=== PATIENT | female | born 1995 | race Two or more races ===

== ENCOUNTER 2018-04-18 14:58 | Emergency (ER) | payer SELFPAY ==
[~2018-04-18] VITALS: Ht 160 cm; Wt 81.6 kg
[2018-04-18 15:31] VITALS: BP 149/78
[2018-04-18 16:44] LABS: Albumin 3.7 g/dL (3.4-5.0); BUN/Creatinine Ratio 9.2; Calcium 8.9 mg/dL (8.5-10.1)
[2018-04-18 16:46] LABS: Bilirubin, Total 0.3 mg/dL (0.2-1.0); Total Protein 7.7 g/dL (6.4-8.2)
[2018-04-18 16:47] LABS: Basophils # (auto) 0 uL; Basophils % (auto) 0.2 % (0.0-2.0); Eosinophils # (auto) 0.2 uL; Eosinophils % (auto) 1.4 % (0.0-7.0); Hematocrit 38.7 % (36.0-46.0); Hemoglobin 12.8 g/dL (12.2-16.2); Lymphocytes # (auto) 2.7 uL; Mean Corpuscular Hemoglobin 28.7 pg (28.0-32.0); Mean Corpuscular Hgb Conc. 32.9 g/dL (32.0-36.0); Mean Corpuscular Volume 87.3 fL (80.0-100.0); Monocytes # (auto) 0.9 uL; Monocytes % (auto) 7.9 % (0.0-12.0); Neutrophils # (auto) 7.4 uL; Neutrophils % (auto) 66.5 % (37.0-80.0); Platelet Count (auto) 397 10^3/uL (140-450); Red Blood Cells 4.44 10^6/uL (4.0-5.20); Red Cell Distribution Width 13.4 % (11.8-14.3); White Blood Cell 11.1 10^3/uL (4.4-10.8)
[2018-04-18 19:46] LABS: Urine WBC None Seen /hpf (0 - 5)
[2018-04-18 20:06] LABS: Urine Amorphous Crystal MOD /hpf (None Seen); Urine Bacteria FEW /hpf (None Seen); Urine Blood Negative /uL (Negative); Urine Mucus FEW (None Seen); Urine Specific Gravity 1.034 (1.001-1.035)
== END 2018-04-18 21:22 | disposition left against medical advice (07) ==
LOC: ER 15:11
DX: R11.2 Nausea with vomiting, unspecified (principal); Z32.01 Encounter for pregnancy test, result positive; Z53.29 Procedure and treatment not carried out because of patient's decision for other reasons
CPT/HCPCS: 36415; 80053; 81001; 81025; 85025

== ENCOUNTER 2018-11-27 11:40 | Observation (INO) | payer MEDICAID ==
[2018-11-28] MEDS ORDERED: PRENCAP PO (13:35)
== END 2018-11-27 12:25 | disposition home or self-care (01) | DRG 566 ==
LOC: LDRP 11:40
PROVIDERS: ADMIT Obstetrics & Gynecology; ATTEND Obstetrics & Gynecology
DX: O48.0 Post-term pregnancy (principal); Z3A.40 40 weeks gestation of pregnancy
CPT/HCPCS: 59025; 81002; G0378

== ENCOUNTER 2018-11-28 12:55 | Observation (INO) | payer MEDICAID ==
[2018-11-28] MEDS ORDERED: PRENCAP PO (13:35)
== END 2018-11-28 14:05 | disposition home or self-care (01) | DRG 566 ==
LOC: LDRP 12:55
PROVIDERS: ADMIT Specialist; ATTEND Specialist
DX: O48.0 Post-term pregnancy (principal); Z3A.40 40 weeks gestation of pregnancy
CPT/HCPCS: 59025; 76818; 81002; G0378

== ENCOUNTER 2018-11-30 11:00 | Observation (INO) | payer MEDICAID ==
[~2018-11-30 11:00] MED LIST: PRENCAP PO
== END 2018-11-30 12:47 | disposition home or self-care (01) | DRG 566 ==
LOC: LDRP 11:00
PROVIDERS: ADMIT Obstetrics & Gynecology; ATTEND Obstetrics & Gynecology
DX: O48.0 Post-term pregnancy (principal); Z3A.40 40 weeks gestation of pregnancy
CPT/HCPCS: 59025; 76818; 81002; G0378

== ENCOUNTER 2018-12-02 20:39 | Observation (INO) | payer MEDICAID | END 2018-12-02 22:10 | disposition home or self-care (01) | DRG 566 | LOC: LDRP 20:39 | PROVIDERS: ADMIT Specialist; ATTEND Specialist | DX: O48.0 Post-term pregnancy (principal); O26.893 Other specified pregnancy related conditions, third trimester; R10.9 Unspecified abdominal pain; Z3A.40 40 weeks gestation of pregnancy | CPT/HCPCS: 76818; G0378 ==

== ENCOUNTER 2020-03-29 17:24 | Observation (INO) | payer MEDICAID ==
[~2020-03-29] VITALS: Ht 30.5 cm; Wt 0.5 kg
[2020-03-29] MEDS ORDERED: TERBUTALINE SULFATE 1 MG/ML 1ML VIAL SC ONE (18:37)
[2020-03-29] MEDS ORDERED: LACTATED RINGER'S 1,000 ML IV ONE (18:45)
[2020-03-29] MEDS: TERBUTALINE SULFATE 1 MG/ML 1ML VIAL SC SCH ×3 (19:02→19:21)
[2020-03-29] MEDS ORDERED: BETAMETHASONE ACET (6MG/ML) 5ML VIAL IM SCH (19:15)
[2020-03-29] MEDS ORDERED: NIFEdipine 10 MG CAP PO ONE (19:30)
[2020-03-29 19:46] LABS: Alcohol, Urine < 3.0 mg/dL (0-10); Amphetamine Screen, Urine NEGATIVE (NEGATIVE); Barbiturate Scree,Urine NEGATIVE (NEGATIVE); Benzodiazephine Screen, Urine NEGATIVE (NEGATIVE); Cannabinoid Screen, Urine POSITIVE (NEGATIVE); Cocaine Screen, Urine NEGATIVE (NEGATIVE); Phencyclidine Screen, Urine NEGATIVE (NEGATIVE)
[2020-03-29 19:54] LABS: Opiate Scree,Urine NEGATIVE (NEGATIVE)
[2020-03-29] MEDS ORDERED: NIF10C PO (20:22)
[2020-03-30] MEDS ORDERED: BETAMETHASONE ACET (6MG/ML) 5ML VIAL IM SCH (10:00)
== END 2020-03-29 21:16 | disposition home or self-care (01) ==
LOC: LDRP 17:24
PROVIDERS: ADMIT Obstetrics & Gynecology; ATTEND Obstetrics & Gynecology
DX: O26.893 Other specified pregnancy related conditions, third trimester (principal); R10.30 Lower abdominal pain, unspecified; O99.891 Other specified diseases and conditions complicating pregnancy; M25.552 Pain in left hip; M25.551 Pain in right hip; O21.2 Late vomiting of pregnancy; O34.63 Maternal care for abnormality of vagina, third trimester; N89.8 Other specified noninflammatory disorders of vagina; Z3A.35 35 weeks gestation of pregnancy; Z79.899 Other long term (current) drug therapy
CPT/HCPCS: 59025; 80307; 81002; 94760; 96360; 96361; 96372; G0378; J0702; J3105

== ENCOUNTER 2020-03-30 19:01 | Observation (INO) | payer MEDICAID ==
[~2020-03-30] VITALS: Ht 160 cm; Wt 103.0 kg
[~2020-03-30 19:01] MED LIST changes: +NIF10C PO
[2020-03-30] MEDS ORDERED: BETAMETHASONE ACET (6MG/ML) 5ML VIAL IM SCH (19:30)
== END 2020-03-30 19:52 | disposition home or self-care (01) ==
LOC: LDRP 19:01
PROVIDERS: ADMIT Obstetrics & Gynecology; ATTEND Obstetrics & Gynecology
DX: O21.2 Late vomiting of pregnancy (principal); O26.893 Other specified pregnancy related conditions, third trimester; N89.8 Other specified noninflammatory disorders of vagina; R10.11 Right upper quadrant pain; R10.12 Left upper quadrant pain; R10.30 Lower abdominal pain, unspecified; M25.551 Pain in right hip; M25.552 Pain in left hip; Z3A.35 35 weeks gestation of pregnancy
CPT/HCPCS: 59025; 81002; 96372; G0378; J0702

== ENCOUNTER 2020-05-10 11:50 | Observation (INO) | payer MEDICAID ==
[~2020-05-10] VITALS: Ht 162.6 cm; Wt 104.3 kg
== END 2020-05-10 15:23 | disposition home or self-care (01) ==
LOC: LDRP 11:50
PROVIDERS: ADMIT Obstetrics & Gynecology; ATTEND Obstetrics & Gynecology
DX: O48.0 Post-term pregnancy (principal); Z3A.41 41 weeks gestation of pregnancy
CPT/HCPCS: 59025; 76805; 76818; 81002; G0378

== ENCOUNTER 2020-05-12 10:45 | Observation (INO) | payer MEDICAID ==
[~2020-05-12] VITALS: Ht 160 cm; Wt 104.3 kg
[~2020-05-12 10:45] MED LIST changes: -NIF10C PO
== END 2020-05-12 12:25 | disposition home or self-care (01) ==
LOC: LDRP 10:45
PROVIDERS: ADMIT Specialist; ATTEND Specialist
DX: O48.0 Post-term pregnancy (principal); Z20.828 Contact with and (suspected) exposure to other viral communicable diseases; O41.03X0 Oligohydramnios, third trimester, not applicable or unspecified; Z3A.41 41 weeks gestation of pregnancy
CPT/HCPCS: 36415; 59025; 76818; 81002; 87426; G0378; U0003

== ENCOUNTER 2020-05-12 20:09 | Inpatient (IN) | payer MEDICAID ==
[~2020-05-12] VITALS: Ht 160 cm; Wt 104.3 kg
[2020-05-12] MEDS ORDERED: WITCH HAZEL-GLYCERIN PAD TOP PRN (20:30)
[2020-05-12] MEDS ORDERED: PHISODERM TOP SOLN 240ML BTL TOP PRN (20:30)
[2020-05-12] MEDS ORDERED: PENICILLIN G POT 5MIL/D5 50ML 50 ML IV ONE (20:30)
[2020-05-12] MEDS ORDERED: DERMOPLAST 60ML BOTTLE TOP PRN (20:30)
[2020-05-12 21:42] LABS: Basophils # (auto) 0 10 ^3/uL (0-0.2); Basophils % (auto) 0.3 % (0.0-2.0); Eosinophils # (auto) 0.1 10 ^3/uL (0-0.8); Eosinophils % (auto) 0.9 % (0.0-7.0); Hematocrit 31.6 % (36.0-46.0); Hemoglobin 10.9 g/dL (12.2-16.2); Lymphocytes # (auto) 1.6 10 ^3/uL (0.4-5.4); Lymphocytes % (auto) 25.8 % (10.0-50.0); Mean Corpuscular Hemoglobin 28.4 pg (28.0-32.0); Mean Corpuscular Hgb Conc. 34.5 g/dL (32.0-36.0); Mean Corpuscular Volume 82.3 fL (80.0-100.0); Monocytes # (auto) 0.4 10 ^3/uL (0-1.3); Neutrophils # (auto) 4.1 10 ^3/uL (1.6-8.6); Platelet Count (auto) 218 10^3/uL (140-450); Red Blood Cells 3.84 10^6/uL (4.0-5.20); Red Cell Distribution Width 14.2 % (11.8-14.3); White Blood Cell 6.3 10^3/uL (4.4-10.8)
[2020-05-12 21:55] LABS: Albumin 2.6 g/dL (3.4-5.0); Calcium 9.2 mg/dL (8.5-10.1); Potassium 3.6 mmol/L (3.5-5.1)
[2020-05-12 21:58] LABS: BUN/Creatinine Ratio 12.3; Bilirubin, Total 0.2 mg/dL (0.2-1.0); Total Protein 6.4 g/dL (6.4-8.2)
[2020-05-12 23:02] LABS: INR 0.93 (0.9-1.15); Partial Thromboplastin Time 24.4 sec (23.0-31.2)
[2020-05-12] MEDS: miSOPROStol 50 MCG per PRE-CUT 1/2 TAB PO PRN (23:33)
[2020-05-13] MEDS: PENICILLIN G POTASSIUM 2,500,000 UNITS in D5W 5% 50 ML IV SCH ×3 (02:55→12:06)
[2020-05-13] MEDS: miSOPROStol 50 MCG per PRE-CUT 1/2 TAB PO PRN (05:24)
[2020-05-13 05:44] LABS: Urine WBC None Seen /hpf (0 - 5)
[2020-05-13] MEDS ORDERED: TERBUTALINE SULFATE 1 MG/ML 1ML VIAL SC ONE (05:45)
[2020-05-13] MEDS ORDERED: LACT. RINGERS/OXYTOCIN 20UNITS 1,000 ML IV SCH (05:45)
[2020-05-13] MEDS ORDERED: LACT. RINGERS/OXYTOCIN 20UNITS 1,000 ML IV ONE (05:45)
[2020-05-13 06:03] LABS: Urine Amorphous Crystal MOD /hpf (None Seen); Urine Bacteria FEW /hpf (None Seen); Urine Blood Negative /uL (Negative); Urine Specific Gravity 1.019 (1.001-1.035)
[2020-05-13 06:20] LABS: Alcohol, Urine < 3.0 mg/dL (0-10); Amphetamine Screen, Urine NEGATIVE (NEGATIVE); Barbiturate Scree,Urine NEGATIVE (NEGATIVE); Benzodiazephine Screen, Urine NEGATIVE (NEGATIVE); Cannabinoid Screen, Urine NEGATIVE (NEGATIVE); Cocaine Screen, Urine NEGATIVE (NEGATIVE); Opiate Scree,Urine NEGATIVE (NEGATIVE); Phencyclidine Screen, Urine NEGATIVE (NEGATIVE)
[2020-05-13] MEDS: LACTATED RINGER'S 1,000 ML IV SCH ×3 (06:24→16:57)
[2020-05-13] MEDS ORDERED: METHYLERGONOVINE MALEATE 0.2 MG/ML AMP IM ONE (07:00)
[2020-05-13] MEDS ORDERED: LIDOCAINE 2%HCL (LOCAL ANESTH.) INJ 20ML MDV IJ ONE (07:00)
[2020-05-13] MEDS ORDERED: LIDOCAINE HCL 2 %PF INJ 10ML AMP IJ ONE (15:00)
[2020-05-13] MEDS ORDERED: LACTATED RINGER'S 1,000 ML IV ONE (15:00)
[2020-05-13] MEDS ORDERED: fentaNYL CITRATE 100 MCG/2 ML VL IV ONE (15:00)
[2020-05-13] MEDS ORDERED: NALOXONE HCL 0.4 MG/ML VIAL IV ONE (15:00)
[2020-05-13] MEDS ORDERED: ROPIVACAINE HCL 100 ML EPI SCH (15:00)
[2020-05-13] MEDS ORDERED: ePHEDrine SULFATE 50 MG/ML AMP IV ONE (15:00)
[2020-05-13] MEDS ORDERED: ROPIVACAINE HCL 400mg/200ml BAG (2mg/ml) ONE (15:39)
[2020-05-13] MEDS ORDERED: ROPIVACAINE HCL 200 ML EPI SCH (15:45)
[2020-05-13] MEDS ORDERED: PENICILLIN G POTASSIUM 2,500,000 UNITS in D5W 5% 50 ML IV SCH (16:00)
[2020-05-13] MEDS ORDERED: IBUPROFEN 600 MG TAB PO PRN (23:45)
[2020-05-13] MEDS ORDERED: ACETAMINOPHEN 325 MG TAB PO PRN (23:45)
[2020-05-14 02:52] VITALS: BP 99/55
[2020-05-14 05:07] LABS: RPR Non Reactive (Non Reactive)
[2020-05-14 07:00] VITALS: BP 92/54
[2020-05-14 11:20] VITALS: BP 123/72
[2020-05-14 15:00] VITALS: BP 128/78
[2020-05-15 07:30] VITALS: BP 113/73
[2020-05-15 11:00] VITALS: BP 124/68
[2020-05-15] MEDS ORDERED: MEASLES, MUMPS & RUBELLA VAC(MMRII) 0.5ML SC ONE (11:00)
== END 2020-05-15 12:18 | disposition home or self-care (01) | DRG 560 ==
LOC: LDRP 20:09
PROVIDERS: ADMIT Specialist; ATTEND Specialist
PROC: 10E0XZZ Delivery of Products of Conception, External Approach (ICD-10-PCS; principal; 2020-05-13)
PROC: 3E0R3BZ Introduction of Anesthetic Agent into Spinal Canal, Percutaneous Approach (ICD-10-PCS; 2020-05-13)
PROC: 00HU33Z Insertion of Infusion Device into Spinal Canal, Percutaneous Approach (ICD-10-PCS; 2020-05-13)
PROC: 3E0P7VZ Introduction of Hormone into Female Reproductive, Via Natural or Artificial Opening (ICD-10-PCS; 2020-05-13)
PROC: 3E033VJ Introduction of Other Hormone into Peripheral Vein, Percutaneous Approach (ICD-10-PCS; 2020-05-13)
DX: O48.0 Post-term pregnancy (principal); O77.0 Labor and delivery complicated by meconium in amniotic fluid; Z37.0 Single live birth; Z3A.41 41 weeks gestation of pregnancy; O66.0 Obstructed labor due to shoulder dystocia; O76 Abnormality in fetal heart rate and rhythm complicating labor and delivery
CPT/HCPCS: 36415; 59025; 59409; 62282; 80053; 80307; 81001; 81002; 84550; 85025; 85362; 85379; 85384; 85610; 85730; 86592; 86850; 86900; 86901; 94760; 96360; 96361; 96365; 96366; G0378; J2540; J2590; J7060